=== PATIENT | female | born 1950 | race Hispanic/Latino ===

== ENCOUNTER 2017-08-10 16:19 | Emergency (ER) | payer BC ==
[2017-08-10] MEDS ORDERED: Bupivacaine 0.5% Inj(30mL) SC STA (16:30)
[2017-08-10] MEDS ORDERED: MethylPREDNISolone Depo 80 mg/ml (5 ml) Inj INJ ONE (16:30)
[2017-08-10 16:35] VITALS: BP 154/96; PULSE 86; RESP 18; TEMP 98; O2SAT 98; BMI 24.1
--- NOTE | 2017-08-10 17:24 | ED PDOC ---
Arrival/HPI - General Chief Complaint: Upper Extremity Problem/Injury Time Seen by Provider: 08/10/17 16:20 Historian: Patient - History of Present Illness Narrative History of Present Illness (Text): 08/10/17 17:06 Estrada Wilson is a 53 year old male who presents to the emergency department sent by PMD for evaluation of left shoulder pain today. Patient denies any trauma or any other complaints at this time. PMD: Dr. Olmedo Time/Duration: 4-6 hours Symptom Onset: Gradual Symptom Course: Unchanged Context: Home Past Medical History - Provider Review Nursing Documentation Reviewed: Yes - Cardiac Hx Cardiac Disorders: No - Pulmonary Hx Respiratory Disorders: No - Renal Hx Renal Disorder: No - Endocrine/Metabolic Hx Endocrine Disorders: No - Hematological/Oncological Hx Blood Disorders: No - Integumentary Hx Dermatological Disorder: No - Musculoskeletal/Rheumatological Hx Musculoskeletal Disorders: Yes Other/Comment: Bursaitis - Gastrointestinal Hx Gastrointestinal Disorders: No - Genitourinary/Gynecological Hx Genitourinary Disorders: No - Psychiatric Hx Psychophysiologic Disorder: No Hx Substance Use: No - Anesthesia Hx Anesthesia: No Family/Social History - Physician Review Nursing Documentation Reviewed: Yes Family/Social History: No Known Family HX Smoking Status: Never Smoked Hx Alcohol Use: No Hx Substance Use: No Allergies/Home Meds Allergies/Adverse Reactions: Allergies codeine Allergy (Verified 08/10/17 16:29) RASH erythromycin base Allergy (Verified 08/10/17 16:29) RASH Penicillins Allergy (Verified 08/10/17 16:29) RASH shellfish derived Allergy (Verified 08/10/17 16:29) ANAPHYLAXIS Sulfa (Sulfonamide Antibiotics) Allergy (Verified 08/10/17 16:29) ANAPHYLAXIS Review of Systems - Physician Review All systems were reviewed & negative as marked: Yes - Review of Systems Constitutional: absent: Fevers, Night Sweats Eyes: absent: Vision Changes ENT: absent: Hearing Changes Respiratory: absent: SOB, Cough Cardiovascular: absent: Chest Pain Gastrointestinal: absent: Abdominal Pain Genitourinary Female: absent: Dysuria, Frequency Musculoskeletal: Other (Left shoulder pain) Skin: absent: Rash, Pruritis Neurological: absent: Headache Endocrine: absent: Diaphoresis Hemo/Lymphatic: absent: Adenopathy Psychiatric: absent: Anxiety, Depression Physical Exam Vital Signs Reviewed: Yes Vital Signs Temp Pulse Resp BP Pulse Ox 08/10/17 16:35 98.0 F 86 18 154/96 H 98 Temperature: Afebrile Blood Pressure: Hypertensive Pulse: Regular Respiratory Rate: Normal Appearance: Positive for: Well-Appearing, Non-Toxic, Comfortable Pain Distress: None Mental Status: Positive for: Alert and Oriented X 3 - Systems Exam Head: Present: Atraumatic, Normocephalic Pupils: Present: PERRL Extroacular Muscles: Present: EOMI Conjunctiva: Present: Normal Mouth: Present: Moist Mucous Membranes Neck: Present: Normal Range of Motion Respiratory/Chest: Present: Clear to Auscultation, Good Air Exchange. No: Respiratory Distress, Accessory Muscle Use Cardiovascular: Present: Regular Rate and Rhythm, Normal S1, S2. No: Murmurs Abdomen: No: Tenderness, Distention, Peritoneal Signs Back: Present: Normal Inspection Upper Extremity: Present: Tenderness (Left shoulder tenderness) Lower Extremity: Present: Normal Inspection. No: Edema Neurological: Present: GCS=15, CN II-XII Intact, Speech Normal Skin: Present: Warm, Dry, Normal Color. No: Rashes Psychiatric: Present: Alert, Oriented x 3, Normal Insight, Normal Concentration Medical Decision Making ED Course and Treatment: 08/10/17 17:26 Impression: 67 year old female sent in by PMD complaining of left shoulder pain today Plan: -- Left Shoulder X-ray -- Marcaine and Depo-Medrol -- Reassess and disposition Progress Notes: 08/10/17 17:25 Patient eloped from the emergency department. - Medication Orders Current Medication Orders: Discontinued Medications Bupivacaine HCl (Marcaine 0.5%) 10 ml SC STAT STA Stop: 08/10/17 16:31 Methylprednisolone Acetate (Depo-Medrol) 80 mg INJ ONCE ONE Stop: 08/10/17 16:31 - Scribe Statement The provider has reviewed the documentation as recorded by the Jelly Ni Provider Scribe Attestation: All medical record entries made by the Scribe were at my direction and personally dictated by me. I have reviewed the chart and agree that the record accurately reflects my personal performance of the history, physical exam, medical decision making, and the department course for this patient. I have also personally directed, reviewed, and agree with the discharge instructions and disposition. Disposition/Present on Arrival - Present on Arrival Any Indicators Present on Arrival: No History of DVT/PE: No History of Uncontrolled Diabetes: No Urinary Catheter: No History of Decub. Ulcer: No History Surgical Site Infection Following: None - Disposition Have Diagnosis and Disposition been Completed?: Yes Diagnosis: Shoulder pain Disposition: ELOPEMENT - ER ONLY Disposition Time: 04:00 Condition: STABLE Referrals: Shara PONCE,MD Reginald [Primary Care Provider] - Follow up with primary Forms: Variable (Fijian)
== END 2017-08-10 17:00 | disposition left against medical advice (07) ==
LOC: ED 16:19
DX: M25.512 Pain in left shoulder (principal)

== ENCOUNTER 2018-06-10 13:46 | Outpatient (CLI) | payer BC | END 2018-06-15 13:56 | disposition home or self-care (01) | LOC: RAD 13:46 | DX: R92.8 Other abnormal and inconclusive findings on diagnostic imaging of breast (principal) ==